=== PATIENT | male | born 1990 | race Asian ===

== ENCOUNTER 2017-05-10 22:43 | Emergency (ER) | payer SELFPAY ==
[~2017-05-10] VITALS: Ht 170.2 cm; Wt 68.5 kg
[~2017-05-10 22:43] MED LIST: IBUP800T25 PO
[2017-05-10 23:04] VITALS: Ht 170.2 cm; Wt 68.5 kg
== END 2017-05-10 23:04 | disposition left against medical advice (07) ==
LOC: FTE 22:43
DX: Z53.21 Procedure and treatment not carried out due to patient leaving prior to being seen by health care provider (principal)